=== PATIENT | female | born 1945 | race Caucasian/White ===

== ENCOUNTER 2018-06-22 12:54 | Outpatient (CLI) | payer MEDICARE ==
--- NOTE | 2018-06-22 14:09 | CT ---
CT BRAIN NONCONTRAST: HISTORY: A 73-year-old female with headache. FINDINGS: There is no midline shift or any other mass effect. There is no evidence of acute intracranial hemor rhage, large cortical infarct, obstructive hydrocephalus, or extraaxial fluid collection. The calvar ium is intact. There is diffuse parenchymal volume loss. There are low attenuation areas in the whi te matter. These are nonspecific, but in a patient of this age, they are probably chronic ischemic w jonelle matter changes due to microvascular atherosclerosis. There is low attenuation in the anterior p ortions of the bilateral external capsules, right greater than left, and in the anterior limbs of the bilateral internal capsules, right greater than left. This is probably part of the chronic ischemic white matter changes. IMPRESSION: 1) No acute intracranial findings. 2) Involutional changes and chronic ischemic white matter changes. jn [] POS: [facility]
--- NOTE | 2018-06-22 14:41 | CT ---
NONCONTRAST CT CERVICAL SPINE: HISTORY: Worsening headache and neck pain. COMPARISON: None. FINDINGS: Visualized soft tissue neck structures are unremarkable. Bilateral palatine tonsils are noted and ar e somewhat prominent. Direct visualization is recommended. Heterogeneity of the thyroid gland with possible exophytic left thyroid lobe masses, incompletely evaluated. Upper mediastinum and lung apices are unremarkable. Cervical spine vertebral body height is maintained. There is no fracture. There is appropriate alig nment of the lateral masses of C1 and C2 as well as the facets. Intact odontoid process. Limited evaluation of the contents of the central spinal canal and neural foramen due to technique. C2-C3: No significant central canal stenosis. Neural foramen are patent. C3-C4: Broad-based disk-osteophyte complex abuts the thecal sac. Mild central canal stenosis. Mild right and minimal left foraminal narrowing. C4-C5: No significant central canal stenosis. Neural foramen are patent. C5-C6: There is a broad-based disk-osteophyte complex with at least mild central canal stenosis. Mo derate right and minimal left foraminal narrowing. C6-C7: There is a broad-based disk-osteophyte complex that abuts the thecal sac. Mild to moderate r ight and mild left foraminal narrowing. C7-T1: No significant disk-osteophyte complex. No high-grade central canal stenosis or high-grade f oraminal narrowing. IMPRESSION: 1. Varying degrees of foraminal stenosis as detailed above. 2. No high-grade central canal stenosis of the central spinal canal. 3. Abnormal-appearing thyroid gland with heterogeneity in the region of the left thyroid lobe. Thyr oid ultrasound is recommended. There does appear to be a previous right lobectomy. Correlate clinic ally. 4. Fullness of the adenoid tonsils. Direct visualization is recommended. CODE T POS: [facility]
== END 2018-06-22 12:55 | disposition home or self-care (01) ==
LOC: SCSCT 12:54
PROVIDERS: ATTEND Psychiatry & Neurology Neurology
DX: R42 Dizziness and giddiness (principal); M48.02 Spinal stenosis, cervical region; E07.9 Disorder of thyroid, unspecified; G93.9 Disorder of brain, unspecified; R68.89 Other general symptoms and signs
CPT/HCPCS: 70450; 72125

== ENCOUNTER 2018-07-12 11:54 | Outpatient (CLI) | payer MEDICARE ==
--- NOTE | 2018-07-12 16:54 | ULT ---
THYROID ULTRASOUND: Date: 07-12-18 History: Abnormal CT examination. Reported history of a total thyroidectomy per patient. FINDINGS: The right lobe of the thyroid gland measures 3.3 cm x 1.1 cm x 4.4 cm with the left lobe measuring 4. 4 cm x 1.6 cm x 1.7 cm. The thyroid isthmus measures 0.6 cm in AP dimensions. The left lobe of the thyroid gland is lobulated in configuration and diffusely heterogeneous. A discr ete nodule is not able to be visualized. There are a few hypoechoic nodules seen within the right lobe of the thyroid gland with a 0.9 cm hypo echoic nodule in the superior pole right lobe of the thyroid gland, 0.9 cm hypoechoic nodule in the i nferior pole right lobe of the thyroid gland, and a 0.6 cm hypoechoic nodule in the region of the thy roid isthmus. IMPRESSION: 1. Lobulated and heterogeneous appearance of the left lobe of the thyroid gland. 2. Right lobe of the thyroid gland is small in size and small hypoechoic nodules measuring less than 1 cm are seen within the right lobe of the thyroid gland. POS: [facility]
== END 2018-07-12 11:55 | disposition home or self-care (01) ==
LOC: SCSULT 11:54
PROVIDERS: ATTEND Otolaryngology Plastic Surgery within the Head & Neck
DX: E89.0 Postprocedural hypothyroidism (principal); E04.2 Nontoxic multinodular goiter; E07.89 Other specified disorders of thyroid
CPT/HCPCS: 76536